=== PATIENT | female | born 1935 | race Caucasian/White ===

== ENCOUNTER → 2017-08-25 | Outpatient (CLI) | payer MEDICARE, OTHER ==
[~2017-08-25] MED LIST: AMO875 PO; ASPI-715 PO; CALC625T80 PO; CHOL200074 PO; CIPR-214 PO; ESCI20TA38 PO; GOLYTE PO; HYDR-2966 PO; HYDR12.561 PO; LISI-362 PO; LISI-368 PO; LOR5 PO; LOVA20TA99 PO; METF-410 PO; METR-1 PO; MOMR ENA; OMEP-137 PO; ONDA4TAB PO; OXYC-854 PO; PANT40TA65 PO; TRAZ-156 PO
--- NOTE | 2017-08-25 14:49 | RADIOLOGY IMAGING REPORT ---
[place] [facility] [place] Quick : 1935 MR: [id number] V: [id number] EXAM DATE: ORDERING PHYSICIAN: LIZA WATERS TECHNOLOGIST: Location: [facility] Patient: Sarah Quick : 1935 Visit/Account:[id number] Date of Sevice: 08/25/2017 HIP RIGHT Indication: Hip pain. Comparison: CT examination of the abdomen and pelvis from January 2017 Findings: Osseous alignment is anatomic the right hip. There is mild degenerative narrowing and subtly increas ed subchondral sclerosis of the acetabular roof. Pubic rami are intact. SI joints are symmetric. N o fracture or destructive osseous process. IMPRESSION: 1. Stable, mild degenerative change right hip without acute finding Report Dictated By: Neeraj Beach MD at 08/25/2017 2:45 PM Report E-Signed By: Neeraj Beach MD at 08/25/2017 2:46 PM WSN:[id number]
== END ==
LOC: RAD 14:19
PROVIDERS: ATTEND Nurse Practitioner Family
DX: M16.11 Unilateral primary osteoarthritis, right hip (principal)

== ENCOUNTER 2017-09-04 13:00 | Outpatient (RCR) | payer MEDICARE, OTHER ==
--- NOTE | 2017-08-26 15:16 | PT INITIAL EVALUATION ---
MEDICAL DIAGNOSIS: Right Hip Pain TREATMENT DIAGNOSIS: Right Hip Bursitis, Right Piriformis Syndrome DATE OF ONSET: 07/26/17 SUBJECTIVE: Sarah is a pleasant 81 year old female presenting to physical therapy following the gradual onset of R sided hip pain that has been occurring over the last 2 months. Pt reports that her hip occasionally "catches" her when walking sometimes bringing pain level up to 6/10. Pt currently reports no pain at rest and reports that it usually isn't bad if she has been resting, but sometimes gets her when she first stands up. Pt is occasionally using lidocaine patches for pain. Pt reports that over the last week the pain has got a bit better. Pt had an x-ray performed this AM, but hasn't yet received the results. REHAB PROBLEM LIST: Increased Pain Decreased Strength Impaired Transfers Decreased Endurance Decreased Function Decreased ADL's Decreased Mobility Decreased Gait PREVIOUS MEDICAL HISTORY: See EMR OCCUPATION: Pt is retired. OBJECTIVE: Pt has visual and palpable swelling just inferior and posterior to the R greater trochanter localized and rounded. ROM: B Hip ROM WFL. Lumbar Screen: Flexion: Full without pain, Ext: full with slight lateral pain, L SB: full pulling sensation on the R hip, R SB: full, B Rotation: full without pain. Palpation: Pt is ttp in the gluteal region along the piriformis muscle and with compression on the greater trochanter. Special Tests: SHALINI, FADIR, Thigh Thrust, Hip Scour all (-). (+) Michel test on the R with pulling sensation and slight pressure. Mobility: Repeated Lumbar Daniel Screen: Flexion: no change, Ext: pain in hip while performing but no change in pain s/p Other Objective Findings: Lower Extremity Functional Scale (LEFS): 72.5/80 ASSESSMENT: Pt show signs and symptoms consistent with right hip bursitis with associated piriformis stiffness and pain as indicated by the above listed impairments. Physical therapy is indicated for this patient to improve functional mobility with ADL's as well as decrease pain. Short Term Goals In 2 weeks pt will report no pain at rest and pain at worst as 3/10 or less with ADLS and functional mobility. In 4 weeks pt will improve B Hip abduction strength to > 4/5 for improved mechanics with ADL's resulting in decreased pain. In 4 weeks pt will improve LEFS to 74/80 or greater for improved function with ADL's. Patient's Goals Decrease hip pain and improve function with ADL's. PLAN: Patient to be seen for Manual Therapy/STM/MET Strengthening/condition Ice/Heat Range of Motion Spinal Stabilization Ultrasound Stretching Iontophoresis Neuromuscular Re-ed Closed Chain Program Electrical Stim Posture/Body mechanics Gait Trg/Balance Trg Biofeedback Home Exercise Program Mech./Manual Traction Therapeutic Activities Pelvic Floor 2-3x/Week for 4 Weeks If you have any questions, comments, or concerns about this report or plan, please contact me at . Thank you, Daisy Marin, PT, DPT, CLT MTDD
[~2017-09-04 13:00] MED LIST changes: -METF-410 PO; +METF-411 PO
== END 2017-09-04 18:00 | disposition home or self-care (01) ==
LOC: PT 13:00
PROVIDERS: ATTEND Nurse Practitioner Family
DX: M25.551 Pain in right hip (principal); G57.01 Lesion of sciatic nerve, right lower limb; M70.61 Trochanteric bursitis, right hip
CPT/HCPCS: 97162

== ENCOUNTER → 2017-10-23 | Outpatient (CLI) | payer MEDICARE, OTHER | LOC: US 00:30 | PROVIDERS: ATTEND Internal Medicine | DX: I10 Essential (primary) hypertension (principal); R06.09 Other forms of dyspnea ==

== ENCOUNTER → 2017-11-03 | Outpatient (CLI) | payer MEDICARE, OTHER ==
[~2017-11-03] MED LIST changes: +REGADENOSON 0.4 MG/5 ML SYR ONE
--- NOTE | 2017-11-03 14:40 | RT STRESS TEST REPORT ---
FACILITY: [facility] [place] PATIENT NAME: ABI DAHL : [id number] MR: [id number] V: [id number] EXAM DATE: ORDERING PHYSICIAN: WEN MELENDEZ TECHNOLOGIST: Jim Acquisition Time: 2017-11-03 14:24:16 Total Exercise Time: 00:01:00 Test Indications: Chest Discomfort Medications: see nuc med list Protocol: LEXISCAN Max HR: 090 BPM 65% of Pred: 138 BPM Max BP: 219/093 mmHG Max Work Load: 1.0 METS Images pending Confirmed by FIONA BOO ([id number]) on 11/03/2017 2:39:53 PM Referred By: Wen Melendez Overread By: FIONA BOO
--- NOTE | 2017-11-03 16:49 | RADIOLOGY IMAGING REPORT ---
FACILITY: [facility] [place] PATIENT NAME: Sarah Quick : 1935 MR: [id number] V: [id number] EXAM DATE: ORDERING PHYSICIAN: WEN DIAZ TECHNOLOGIST: [facility] Patient: Sarah Quick : 1935 Visit/Account:[id number] Date of Sevice: 11/03/2017 EXAMINATION: Single isotope SPECT imaging with regadenoson infusion and gated SPECT imaging. DATE OF EXAMINATION: EXAMINATION: Single isotope SPECT imaging with regadenoson infusion and gated S PECT imaging. DATE OF EXAMINATION: 11/03/2017. DATE OF INTERPRETATION: 11/03/2017. REQUESTING PHYSICIAN: WEN DIAZ. INDICATION: The patient is a 82-year-old female evaluated for chest pain. PROCEDURE: After informed consent the patient received an intravenous injection of 12.0 mCi of Tc-99 m sestamibi followed at an appropriate time interval by rest imaging. The patient then subsequently received an intravenous infusion of 0.4 mg of regadenoson per protocol without complication. Resting heart rate was 57 bpm with a peak heart rate of 90 bpm. Blood pressure at rest was 206 / 80 and fol lowing infusion was 219 / 93. Baseline EKG demonstrates normal sinus rhythm, no ST or T-wave abnorma lities. There were no EKG changes of ischemia following infusion. Symptoms were nonspecific. The p atient then received an intravenous injection of 28.3 mCi of Tc-99m sestamibi followed by stress imag ing. RAW DATA: Examination of the summed raw data revealed a fair quality study. MYOCARDIAL PERFUSION: The tomographic images demonstrate normal perfusion with no evidence of infarc t or ischemia. GATED IMAGES: The gated images demonstrate normal wall motion, ejection fraction 66%. IMPRESSION: 1. Good quality study 2. Normal myocardial perfusion scan. 3. Normal LV systolic function; LVEF 66%. 4. Based on the results of this exam, the patient appears to be at low risk for future cardiovascular events, but remains intermediate risk due to inability to exercise. Report Dictated By: Wen Diaz at 11/03/2017 4:29 PM Report E-Signed By: Wen Diaz at 11/03/2017 4:45 PM WSN:[id number]
== END ==
LOC: NUC 01:42
PROVIDERS: ATTEND Internal Medicine
DX: R07.2 Precordial pain (principal)
CPT/HCPCS: 78452; 93017; A9500; J2785

== ENCOUNTER → 2018-04-17 | Outpatient (CLI) | payer MEDICARE, OTHER ==
[~2018-04-17] MED LIST changes: +IPRA15SP7 NS; -METF-411 PO; +METF-450 PO; -REGADENOSON 0.4 MG/5 ML SYR ONE; -TRAZ-156 PO; +TRAZ50TA34 PO
== END ==
LOC: LAB 09:42
PROVIDERS: ATTEND Internal Medicine Cardiovascular Disease
DX: R06.02 Shortness of breath (principal)
CPT/HCPCS: 36415; 83880

== ENCOUNTER → 2018-04-20 | Outpatient (CLI) | payer MEDICARE, OTHER ==
--- NOTE | 2018-04-24 10:56 | RT STRESS TEST REPORT ---
[place] [facility] [place] NAME: ABI DAHL : [id number] MR: [id number] V: [id number] EXAM DATE: ORDERING PHYSICIAN: RODNEY MEHTA TECHNOLOGIST: Erwin Acquisition Time: 2018-04-20 13:49:53 Total Exercise Time: 00:03:43 Test Indications: SOB Medications: See chart Protocol: BRUCE2 Max HR: 139 BPM 100% of Pred: 138 BPM Max BP: 217/081 mmHG Max Work Load: 5.4 METS Confirmed by FIONA BOO ([id number]) on 04/24/2018 10:55:49 AM Referred By: Overread By: FIONA BOO
== END ==
LOC: RESP 06:57
PROVIDERS: ATTEND Internal Medicine Cardiovascular Disease
DX: R06.02 Shortness of breath (principal)
CPT/HCPCS: 93017

== ENCOUNTER → 2018-09-01 | Outpatient (CLI) | payer MEDICARE, OTHER ==
[2018-09-01 13:15] LABS: INR 0.99
== END ==
LOC: LAB 12:32
PROVIDERS: ATTEND Internal Medicine
DX: R94.39 Abnormal result of other cardiovascular function study (principal)
CPT/HCPCS: 36415; 82310; 82374; 82435; 82565; 82947; 84132; 84295; 84520; 85027; 85610

== ENCOUNTER → 2018-10-05 | Outpatient (CLI) | payer MEDICARE, OTHER ==
[~2018-10-05] MED LIST changes: -TRAZ50TA34 PO; +TRAZ50TA52 PO
== END ==
LOC: LAB 14:40
PROVIDERS: ATTEND Urology
DX: N39.0 Urinary tract infection, site not specified (principal); R30.0 Dysuria; B96.20 Unspecified Escherichia coli [E. coli] as the cause of diseases classified elsewhere
CPT/HCPCS: 81001; 87088; 87186

== ENCOUNTER 2018-11-16 15:00 | Outpatient (RCR) | payer MEDICARE, OTHER ==
[2018-09-30 16:52] VITALS: BP 132/70
[2018-09-30 16:54] VITALS: BP 136/68
--- NOTE | 2018-10-04 13:45 | CARDIAC REHAB PLAN OF CARE ---
Physician: Araceli SILVESTRE Patient is being seen: Luis Patterson Medical Diagnosis: PCI, Stent x 3 Date of Initial Evaluation: September 30, 2018 Short Term Goals Due Date: 11/03/18 Short Term Goals: Patient Assessment: 83 year old female comes to cardiac rehab following a September 06, 2018 PCI, Stent x 3 intervention. Patient had been directed to have a stress test to help determine her shortness of breath, which revealed a need for cardiac PCI. Her LAD show 95% stenosis, left circumflex 20% stenosis, and RCA at 80% stenosis. Patient is also in need of surgery to repair a hiatal hernia, which could also improve shortness of breath. Other health history includes diabetes (Type II), depression, GERD, hypertension (20 years), hyperlipidemia (20 years), and sleep apnea treated with CPAP. Exercise Assessment: During his 6 minute walk test the patient 1350 feet at 2.6 mph. SPO2 levels of 90-93% on room air and the flat folder showed a ST without ectopy and rates of 100-117. Her age predicted max HR is at 137 and 117 HR is 85% of that age predicted max. Her THR will be set at 104-117. Exercise Plan: Goals: Will be to gradually increase duration and intensity of exercise during her 36 visit phase II program, in safe and monitored sessions. Exercise Prescription: Mode: Treadmill, recumbent bike and weight resistance. Frequency: 3 days/week (MWF) Duration: 40-50 minutes of aerobic exercise; 15-20 minutes of strength training and stretching. Intensity: Patient is active in her lifestyle and also walks regularly. She should be able to achieve 150 minutes each week at moderate level (3.0-6.0 METs) early in the program. Exercise Reassessment (Date: ): Exercise Discharge/Follow-Up (Date: ): Nutrition Assessment: The patient reports eating mostly salads, and has adjusted her diet to help with Type II diabetes. Her description of a normal day shows she needs more adjustments to add healthy vegetables other then the salads she enjoys which are mostly iceberg lettuce, and fewer white potatoes. In addition to adding healthy vegetables, she also needs whole grain choices to help with fiber, as well as fruit choices. Nutrition Plan: Goals: The goals with be to provide education on heart healthy diets and portion control. Intervention: To also help her understand healthy trade outs of healthy ingredients of her favorite foods to eat to improve her overall nutritional profile. Nutrition Reassessment (Date: ): Nutrition Discharge/Follow-Up (Date: ): Psychosocial Assessment: The patient scored well on the HADS scale assessment with a 0/21 for depression, and 0/21 for anxiety. She does take escitalopram oxalate for depression. She is pleasant and very motivated to take part in the phase II program. Psychosocial Plan: Goals: Our goal will be to improve her health with diet and exercise. Those positive results will continue to motivate her and help reduce depression. Psychosocial Reassessment (Date: ): Psychosocial Discharge/Follow-Up (Date: ): Physician Signature: Date: HUMPHREYD
[2018-10-05 16:23] VITALS: BP 120/56
[2018-10-05 16:24] VITALS: BP 132/70
[2018-10-07 17:43] VITALS: BP 130/62
[2018-10-07 17:46] VITALS: BP 118/60
[2018-10-14 16:07] VITALS: BP 142/80
[2018-10-14 16:08] VITALS: BP 142/66
[2018-10-19 16:59] VITALS: BP 120/68
[2018-10-19 17:00] VITALS: BP 126/68
[2018-10-26 15:47] VITALS: BP 141/58
[2018-10-26 15:48] VITALS: BP 134/60
[2018-11-04 16:20] VITALS: BP 148/54
[2018-11-04 16:21] VITALS: BP 132/58
[2018-11-16 16:22] VITALS: BP 110/72
[2018-11-16 16:24] VITALS: BP 140/78
--- NOTE | 2018-11-26 13:24 | CARDIAC REHAB PLAN OF CARE ---
Physician: Araceli Ventura SOLID PLASTERER Patient is being seen: Luis Patterson Medical Diagnosis: PCI, Stent x 3 Date of Initial Evaluation: 09/30/2018 Short Term Goals Due Date: 11/03/18 Short Term Goals: Patient Assessment: 83 year old female comes to cardiac rehab following a September 06, 2018 PCI, Stent x 3 intervention. Patient had been directed to have a stress test to help determine her shortness of breath, which revealed a need for cardiac PCI. Her LAD showed 95% stenosis, left circumflex 20% stenosis, and RCA at 80% stenosis. Patient is also in need of surgery to repair a hiatal hernia, which could also improve shortness of breath. Other health history includes diabetes (Type II), depression, GERD, hypertension (20 years), hyperlipidemia (20 years), and sleep apnea treated with CPAP. Exercise Assessment: During his 6 minute walk test the patient 1350 feet at 2.6 mph. SPO2 levels of 90-93% on room air and the bus monitor showed a ST without ectopy and rates of 100-117. Her age predicted max HR is at 137 and 117 HR is 85% of that age predicted max. Her THR will be set at 104-117. Exercise Plan: Goals: Will be to gradually increase duration and intensity of exercise during her 36 visit phase II program, in safe and monitored sessions. Exercise Prescription: Mode: Treadmill, recumbent bike and weight resistance. Frequency: 3 days/week (MWF) Duration: 40-50 minutes of aerobic exercise; 15-20 minutes of strength training and stretching. Intensity: Patient is active in her lifestyle and also walks regularly. She should be able to achieve 150 minutes each week at moderate level (3.0-6.0 METs) early in the program. Exercise Reassessment (Date:11/26/2018): Patient has made 9 visits since her September 30, 2018 evaluation and tolerates 30 minutes of a moderate level of cardio exercise, followed by weight resistance with 4 pound dumbbells. Patient also states she is able to be active and walk on her days away from the cardiac rehab unit. During exercise SPO2 levels remain in the 90's on room air, and the bus monitor shows a NSR-ST without ectopy and rates of 95-104. Her THR is currently at 104-117. Exercise Discharge/Follow-Up (Date: ): Nutrition Assessment: The patient reports eating mostly salads, and has adjusted her diet to help with Type II diabetes. Her description of a normal day shows she needs more adjustments to add healthy vegetables other then the salads she enjoys which are mostly iceberg lettuce, and fewer white potatoes. In addition to adding healthy vegetables, she also needs whole grain choices to help with fiber, as well as fruit choices. Nutrition Plan: Goals: The goals with be to provide education on heart healthy diets and portion control. Intervention: To also help her understand healthy trade outs of healthy ingredients of her favorite foods to eat to improve her overall nutritional profile. Nutrition Reassessment (Date: 11/26/2018): Patients diet remains unchanged for the most part, and her current weight remains 165 pounds. 27.5 BMI Nutrition Discharge/Follow-Up (Date: ): Psychosocial Assessment: The patient scored well on the HADS scale assessment with a 0/21 for depression, and 0/21 for anxiety. She does take escitalopram oxalate for depression. She is pleasant and very motivated to take part in the phase II program. Psychosocial Plan: Goals: Our goal will be to improve her health with diet and exercise. Those positive results will continue to motivate her and help reduce depression. Psychosocial Reassessment (Date:11/26/1018): Patient remains in a positive. motivated mental state. The patients sporadic attendance is not a stress for her as she enjoys remaining active and busy in her life and seems willing to trade that for regular attendance to the more formal exercise program of the phase II cardiac rehab program. Psychosocial Discharge/Follow-Up (Date: ): Physician Signature: Date: MTDD
--- NOTE | 2018-11-26 14:15 | CARDIAC REHAB PLAN OF CARE ---
Physician: Araceli Ventura ASSISTANT TO THE VICE PRESIDENT Patient is being seen: Luis Patterson Medical Diagnosis: PCI, Stent x 3 Date of Initial Evaluation: 09/30/2018 Short Term Goals Due Date: 11/03/18 Short Term Goals: Patient Assessment: 83 year old female comes to cardiac rehab following a September 06, 2018 PCI, Stent x 3 intervention. Patient had been directed to have a stress test to help determine her shortness of breath, which revealed a need for cardiac PCI. Her LAD showed 95% stenosis, left circumflex 20% stenosis, and RCA at 80% stenosis. Patient is also in need of surgery to repair a hiatal hernia, which could also improve shortness of breath. Other health history includes diabetes (Type II), depression, GERD, hypertension (20 years), hyperlipidemia (20 years), and sleep apnea treated with CPAP. Exercise Assessment: During her 6 minute walk test the patient 1350 feet at 2.6 mph. SPO2 levels of 90-93% on room air and the panel monitor showed a ST without ectopy and rates of 100-117. Her age predicted max HR is at 137 and 117 HR is 85% of that age predicted max. Her THR will be set at 104-117. Exercise Plan: Goals: Will be to gradually increase duration and intensity of exercise during her 36 visit phase II program, in safe and monitored sessions. Exercise Prescription: Mode: Treadmill, recumbent bike and weight resistance. Frequency: 3 days/week (MWF) Duration: 40-50 minutes of aerobic exercise; 15-20 minutes of strength training and stretching. Intensity: Patient is active in her lifestyle and also walks regularly. She should be able to achieve 150 minutes each week at moderate level (3.0-6.0 METs) early in the program. Exercise Reassessment (Date:11/26/2018): Patient has made 9 visits since her September 30, 2018 evaluation and tolerates 30 minutes of a moderate level of cardio exercise, followed by weight resistance with 4 pound dumbbells. Patient also states she is able to be active and walk on her days away from the cardiac rehab unit. During exercise SPO2 levels remain in the 90's on room air, and the panel monitor shows a NSR-ST without ectopy and rates of 95-104. Her THR is currently at 104-117. Exercise Discharge/Follow-Up (Date: ): Nutrition Assessment: The patient reports eating mostly salads, and has adjusted her diet to help with Type II diabetes. Her description of a normal day shows she needs more adjustments to add healthy vegetables other then the salads she enjoys which are mostly iceberg lettuce, and fewer white potatoes. In addition to adding healthy vegetables, she also needs whole grain choices to help with fiber, as well as fruit choices. Nutrition Plan: Goals: The goals with be to provide education on heart healthy diets and portion control. Intervention: To also help her understand healthy trade outs of healthy ingredients of her favorite foods to eat to improve her overall nutritional profile. Nutrition Reassessment (Date: 11/26/2018): Patients diet remains unchanged for the most part, and her current weight remains 165 pounds. 27.5 BMI Nutrition Discharge/Follow-Up (Date: ): Psychosocial Assessment: The patient scored well on the HADS scale assessment with a 0/21 for depression, and 0/21 for anxiety. She does take escitalopram oxalate for depression. She is pleasant and very motivated to take part in the phase II program. Psychosocial Plan: Goals: Our goal will be to improve her health with diet and exercise. Those positive results will continue to motivate her and help reduce depression. Psychosocial Reassessment (Date:11/26/1018): Patient remains in a positive. motivated mental state. The patients sporadic attendance is not a stress for her as she enjoys remaining active and busy in her life and seems willing to trade that for regular attendance to the more formal exercise program of the phase II cardiac rehab program. Psychosocial Discharge/Follow-Up (Date: ): Physician Signature: Date: MTDD
== END 2018-11-16 18:00 | disposition home or self-care (01) ==
LOC: CARD 15:00
PROVIDERS: ATTEND Internal Medicine
DX: Z95.5 Presence of coronary angioplasty implant and graft (principal); I10 Essential (primary) hypertension
CPT/HCPCS: 93798

== ENCOUNTER → 2018-12-08 | Outpatient (CLI) | payer MEDICARE, OTHER ==
[~2018-12-08] MED LIST changes: +AZEL137S NS
== END ==
LOC: LAB 10:41
PROVIDERS: ATTEND Internal Medicine
DX: E78.00 Pure hypercholesterolemia, unspecified (principal); I10 Essential (primary) hypertension; I31.3 Pericardial effusion (noninflammatory); I25.10 Atherosclerotic heart disease of native coronary artery without angina pectoris; G47.33 Obstructive sleep apnea (adult) (pediatric)
CPT/HCPCS: 36415; 82040; 82247; 82310; 82374; 82435; 82465; 82565; 82947; 83718; 84075; 84132; 84155; 84295; 84450; 84460; 84478; 84520